=== PATIENT | female | born 1990 | race Asian ===

== ENCOUNTER → 2018-04-29 15:01 | Outpatient (CLI) | payer OTHER, SELFPAY ==
[2018-04-29 18:36] LABS: Chlamydia Trachomatis by PCR Negative (Negative); Neisserai gonorrhoeae by PCR Negative (Negative); Probe Check PASS; Sample Adequacy Control PASS; Specimen Processing Control PASS
[2018-05-03 13:38] LABS: HPV Reflexed? NOT INDICATED
== END ==
LOC: LABSPEC 15:03
PROVIDERS: Visit Provider Obstetrics & Gynecology
DX: Z32.01 Encounter for pregnancy test, result positive (principal); Z11.3 Encounter for screening for infections with a predominantly sexual mode of transmission; Z12.4 Encounter for screening for malignant neoplasm of cervix
CPT/HCPCS: 87491; 87591; 88175; G0145

== ENCOUNTER → 2018-05-22 13:14 | Outpatient (CLI) | payer OTHER, SELFPAY ==
[2018-05-22 15:39] LABS: Color, Urine Yellow (Yellow); Glucose, Dipstick Normal (Normal); Ketone-Dipstick Negative (Negative); Leukocyte Esterase-Dipstick 25 /ul (Negative); Nitrite-Dipstick Negative (Negative); Occult Blood-Urine Negative /ul (Negative); Protein-Dipstick Negative (Negative); Urine Bilirubin Dipstick Negative (Negative); Urine Clarity Clear (Clear); Urine Urobilinogen Normal (Normal)
[2018-05-22 15:50] LABS: Absolute Lymphocyte Count 1.94 X10^3/ul (0.83-4.51); Absolute Neutrophil Count 5.6 X10^3/uL (2.0-7.7); Basophil# 0.02 X10^3/uL; Basophil% 0.2 % (0-1); Eosinophil# 0.12 X10^3/uL; Eosinophils% 1.5 % (0-5); Hematocrit 38.6 % (37-47); Hemoglobin 13.4 g/dl (12.0-15.0); Lymphocyte # 1.94 X10^3/ul (4.0); Lymphocyte % 24.1 % (19-41); Mean Corp Hgb Conc 34.7 g/gl (32-36); Mean Corpuscular Hgb 30.7 pg (27.0-32.0); Mean Corpuscular Volume 88.3 fL (81-99); Mean Platelet Vol. 11.6 fl (6.2-12.0); Monocyte# 0.39 X10^3/uL; Monocyte% 4.8 % (0-10); Neutrophil # 5.58 X10^3/uL (2.7-7.7); Neutrophil % 69.3 % (47-70); Platelet Count 244 K/mm3 (150-450); RBC Distribution Width CV 12.4 % (11.6-14.6); RBC Distribution Width SD 39.3 fl (35.1-43.9); Red Blood Count 4.37 M/mm3 (4.2-5.4); White Blood Count 8.1 K/mm3 (4.4-11.0)
[2018-05-22 15:54] LABS: POSITIVE COUNT NO; POSITIVE DIFFERENTIAL NO; POSITIVE MORPHOLOGY NO
[2018-05-22 16:11] LABS: Thyroid Stim Hormone (TSH) 1.91 uIU/mL (0.358-3.74)
[2018-05-22 16:46] LABS: HIV - WCH Non-Reactive (Nonreactive); Rubella IgG 48.7 IU/mL
[2018-05-24 01:02] LABS: Prenatal RPR NONREACTIVE (NONREACTIVE)
[2018-05-24 11:18] LABS: HEPATITIS B SURFACE AG Negative (Negative); Hep C Antibodies 0.1 s/co ratio (0.0-0.9)
== END ==
LOC: WOBLAB 13:16
PROVIDERS: Visit Provider Obstetrics & Gynecology
DX: Z34.82 Encounter for supervision of other normal pregnancy, second trimester (principal)
CPT/HCPCS: 36415; 81002; 84443; 85025; 86703; 86762; 86803; 87340

== ENCOUNTER → 2018-09-04 09:02 | Outpatient (CLI) | payer OTHER, SELFPAY ==
[2018-09-04 10:53] LABS: Hematocrit 35.8 % (37-47); Hemoglobin 12.2 g/dl (12.0-15.0); Mean Corp Hgb Conc 34.1 g/gl (32-36); Mean Corpuscular Volume 88.2 fL (81-99); Mean Platelet Vol. 10.5 fl (6.2-12.0); Platelet Count 222 K/mm3 (150-450); RBC Distribution Width CV 12.9 % (11.6-14.6); RBC Distribution Width SD 41.4 fl (35.1-43.9); Red Blood Count 4.06 M/mm3 (4.2-5.4); White Blood Count 8.8 K/mm3 (4.4-11.0)
[2018-09-04 11:00] LABS: Scan Indicated on CBC? Y/N NO
[2018-09-04 11:04] LABS: Glucose Challenge Gest 1H 50g 148 mg/dL (70-140)
--- OUTSIDE RECORDS SUMMARY | 2018-10-30 14:53 | XMS RPT_ITS ---
:1990 Author Organization OHIP Support Name Relationship Address Phone SANDRAEARNEST Unavailable [address] + [place] [address] WOOBGYN Unavailable BENEKOS/WEEMAN/NUNO + [address] [facility] [address] [place] [address] EARNEST FLORES Unavailable [address] + [place] [address] WOOBGYN Unavailable BENEKOS/WEEMAN/NUNO + [address] [facility] [address] [place] [address] EARNEST FLORES Unavailable [address] + [place] [address] WOOBGYN Unavailable BENEKOS/WEEMAN/NUNO + [address] [facility] [address] [place] [address] EARNEST FLORES Unavailable [address] + [place] [address] WOOBGYN Unavailable BENEKOS/WEEMAN/NUNO + [address] [facility] [address] [place] [address] EARNEST FLORES Unavailable [address] + [place] [address] WOOBGYN Unavailable BENEKOS/WEEMAN/NUNO + [address] [facility] [address] [place] [address] EARNEST FLORES Unavailable [address] + [place] [address] WOOBGYN Unavailable BENEKOS/WEEMAN/NUNO + [address] [facility] [address] [place] [address] EARNEST FLORES Unavailable [address] + [place] [address] WOOBGYN Unavailable DAVID/ALFREDO/YAAKOV + [address] [place] [address] Care Team Providers Name Role Phone HernandezAshlyn, Summer Attending Unavailable Hernandez-Get, Summer Attending Unavailable Primay Care Physicia, No Primary Care Unavailable Noemi Mehta Attending Unavailable Hernandez-Get, Summer Attending Unavailable Hernandez-Get, Summer Attending Unavailable Primay Care Physicia, No Primary Care Unavailable Hernandez-Get, Summer Attending Unavailable Primay Care Physicia, No Primary Care Unavailable Hernandez-Get, Summer Attending Unavailable Hernandez-Get, Summer Referring Unavailable Cleo Parker Primary Care Unavailable PROBLEMS PROBLEMS DATE TYPE CONDITION / CODE ATTENDING STATUS SOURCE 09/20/2018 Unknown Z34.83 - Encounter Angélica Active [place] for supervision of [facility] , third Repository trimester / Z34.83(ICD-10) 05/22/2018 Unknown Z34.82 - Encounter Angélica Active [place] for supervision of [facility] , second Repository trimester / Z34.82(ICD-10) 04/29/2018 Unknown Z32.01 - Encounter Angélica Active [place] for test, [facility] result positive / Hospital Z32.01(ICD-10) Repository 04/29/2018 Unknown Z11.3 - Encounter Angélica Active [place] for screening for [facility] infections with a Hospital predominantly Repository sexual mode of transmission / Z11.3(ICD-10) 04/29/2018 Unknown Z12.4 - Encounter Angélica Active [place] for screening for [facility] malignant neoplasm Hospital of cervix / Repository Z12.4(ICD-10) 10/16/2017 Unknown R11.0 - Nausea / Angélica Active [place] R11.0(ICD-10) [facility] Hospital Repository 10/16/2017 Unknown N91.2 - Amenorrhea, Angélica Active [place] unspecified / [facility] N91.2(ICD-10) Hospital Repository PROCEDURES PROCEDURES No Procedure Records FoundRESULTS RESULTS VITAMIN D,25 HYDROXY Collected: 09/20/2018 Status: F Source: [place] [facility] TYPE CODE TESTS RESULT OUT OF REFERENCE UNITS RANGE LAB L506.1000 29.95-100.01 ng/mL Low Vitamin D 25.4 25-OH Result Comment: Vitamin D 25(OH) Status Range Deficiency <20 ng/mL (50nmol/L) Insuffciency 20 - 30 ng/mL (50 - 75 nmol/L) Sufficiency 30 - 100 ng/mL (75 - 250 nmol/L) Toxicity >100 ng/mL (>250 nmol/L) Performed By: #### L506.1000 #### [facility] [address] [place], [address] GESTATIONAL GTT 3HR Collected: 09/13/2018 Status: F Source: [place] 100G 7:10 AM [facility] REPOSITORY Order Comment: Is Patient Fasting? Y TYPE CODE TESTS RESULT OUT OF RANGE REFERENCE UNITS LAB L501.0650 <105 mg/dL Normal GLU 92 GTT-FASTING Result Comment: GLUCOSE TOLERANCE TEST FOR Reference Interval GESTATIONAL DIABETES Fasting <105 mg/dL 1 hour <190 mg/dl 2 hour <165 mg/dl 3 hour <145 mg/dl LAB L501.0660 <190 mg/dL Normal GLU GTT- 1HR 153 LAB L501.0670 <165 mg/dL Normal GLU GTT- 2HR 109 LAB L501.0680 <145 L Normal GLU GTT- 3HR 90 Performed By: #### L500.4710 #### [facility] [address] [facility] [place], [address] CBC-COMPLETE BLOOD CNT Collected: 09/04/2018 Status: F Source: [place] NO DIFF 9:30 AM [facility] REPOSITORY TYPE CODE TESTS RESULT OUT OF RANGE REFERENCE UNITS LAB L100.1000 4.4-11.0 K/mm3 Normal WBC 8.8 LAB L100.1200 4.2-5.4 M/mm3 Low RBC 4.06 LAB L100.1300 12.0-15.0 g/dl Normal HGB 12.2 LAB L100.1400 37-47 % Low HCT 35.8 LAB L100.1500 81-99 fL Normal MCV 88.2 LAB L100.1600 27.0-32.0 pg Normal MCH 30.0 LAB L100.1700 32-36 g/gl Normal MCHC 34.1 LAB L100.1810 11.6-14.6 % Normal RDW CV 12.9 LAB L100.1820 35.1-43.9 fl Normal RDW SD 41.4 LAB L100.1900 150-450 K/mm3 Normal PLT 222 LAB L100.2000 6.2-12.0 fl Normal MPV 10.5 Performed By: #### L100.0500 #### [facility] [address] [place], [address] GLUCOSE CHALLENGE GEST Collected: 09/04/2018 Status: F Source: [place] 1H 50G 9:30 AM [facility] REPOSITORY TYPE CODE TESTS RESULT OUT OF RANGE REFERENCE UNITS LAB L501.0250 70-140 mg/dL High GLU GEST 148 50g 1H Performed By: #### L501.0250 #### [facility] [address] [place], [place], [address] URINALYSIS, ROUTINE Collected: 05/22/2018 Status: F Source: [place] (DIPSTICK) 2:09 PM [facility] REPOSITORY Order Comment: How was Urine Obtained? Urine, Random TYPE CODE TESTS RESULT OUT OF RANGE REFERENCE UNITS LAB L400.3000 Yellow COLOR Normal Yellow LAB L400.3050 Clear Normal CLARITY Clear LAB L400.3200 Normal mg/dl Normal GLUCOSE, UR Normal LAB L400.3300 Negative mg/dL Normal BILIRUBIN URINE Negative LAB L400.3400 Negative mg/dl Normal KETONE UR Negative LAB L400.3465 1.002-1.030 Normal SP.GR. DIPSTX 1.010 LAB L400.3550 5.0 - 8.0 pH UR Normal 7.0 LAB L400.3600 Negative mg/dl PROT Normal DIPSTX Negative LAB L400.3700 Normal mg/dl Normal UROBILI Normal LAB L400.3750 Negative Normal NITRITE UR Negative LAB L400.3780 Negative /ul Normal OCCULT BLOOD-UR Negative LAB L400.3800 Negative /ul High LEUK 25 ESTERASE Performed By: #### L400.2010 #### [facility] [address] [place], [address] CBC W/DIFF, AUTOMATED Collected: 05/22/2018 Status: F Source: [place] 2:09 PM [facility] REPOSITORY TYPE CODE TESTS RESULT OUT OF RANGE REFERENCE UNITS LAB L100.1000 4.4-11.0 K/mm3 Normal WBC 8.1 LAB L100.1200 4.2-5.4 M/mm3 Normal RBC 4.37 LAB L100.1300 12.0-15.0 g/dl Normal HGB 13.4 LAB L100.1400 37-47 % Normal HCT 38.6 LAB L100.1500 81-99 fL Normal MCV 88.3 LAB L100.1600 27.0-32.0 pg Normal MCH 30.7 LAB L100.1700 32-36 g/gl Normal MCHC 34.7 LAB L100.1810 11.6-14.6 % Normal RDW CV 12.4 LAB L100.1820 35.1-43.9 fl Normal RDW SD 39.3 LAB L100.1900 150-450 K/mm3 Normal PLT 244 LAB L100.2000 6.2-12.0 fl Normal MPV 11.6 LAB L100.2100 47-70 % Normal NEUT% 69.3 LAB L100.2200 19-41 % Normal LY% 24.1 LAB L100.2300 0-10 % Normal MONO% 4.8 LAB L100.2400 0-5 % Normal EO% 1.5 LAB L100.2500 0-1 % Normal BASO% 0.2 LAB L100.2550 0.0-0.9 % Normal IM GRAN % 0.100 Result Comment: IG% - Immature Granulocytes (promyelocytes, myelocytes and metamyelocytes) > 1% indicates that a LEFT SHIFT is Present. LAB L100.2620 2.0-7.7 X10 3/uL Normal Absolute Neut 5.6 LAB L100.2720 0.83-4.51 X10 3/ul Normal Absolute Lymph 1.94 Performed By: #### L100.0100 #### [facility] [address] [place], [address] THYROID STIM HORMONE Collected: 05/22/2018 Status: F Source: [place] (TSH) 2:09 PM [facility] REPOSITORY TYPE CODE TESTS RESULT OUT OF RANGE REFERENCE UNITS LAB L501.9520 0.358-3.74 uIU/mL Normal TSH 1.91 Performed By: #### L501.9520 #### [facility] [address] [place], [address] T AND S-NO Collected: 05/22/2018 Status: F Source: [place] CHARGE W/PNP 2:09 PM [facility] REPOSITORY Order Comment: Reason for Type AND Screen/Red Cells: Surgery? N TYPE CODE TESTS RESULT OUT OF RANGE REFERENCE UNITS LAB B10.0800 A Normal BLOOD POSITIVE TYPE GEL LAB B100.4050 Normal Ab SCREEN NEGATIVE GEL Performed By: #### B100.7550 #### [facility] [address] [place], [address] RUBELLA IGG Collected: 05/22/2018 Status: F Source: [place] 2:09 PM [facility] REPOSITORY TYPE CODE TESTS RESULT OUT OF RANGE REFERENCE UNITS LAB L509.4000 IU/mL Normal Rubella IgG 48.7 Result Comment: Antibody results Interpretation of Immune Status < 5 IU/ml Presumed Non-immune 5 - < 10 IU/ml Equivocal > or = 10 IU/ml Presumed Immune Performed By: #### L509.4000, L3890.6005 #### [facility] [address] [place], [place], [address] HIV - WCH Collected: 05/22/2018 Status: F Source: [place] 2:09 PM [facility] REPOSITORY TYPE CODE TESTS RESULT OUT OF RANGE REFERENCE UNITS LAB L3890.6005 Nonreactive Normal HIV - [facility] Non-Reactive Performed By: #### L509.4000, L3890.6005 #### [facility] [address] [place], [address] RPR Collected: 05/22/2018 Status: F Source: [place] 2:09 PM [facility] REPOSITORY TYPE CODE TESTS RESULT OUT OF REFERENCE UNITS RANGE LAB L700.5100 NONREACTIVE Normal RPR NONREACTIVE Performed By: #### L700.5100 #### [facility] [address] [place], [address] HEPATITIS B SURFACE Collected: 05/22/2018 Status: F Source: [place] AG 2:09 PM [facility] REPOSITORY TYPE CODE TESTS RESULT OUT OF RANGE REFERENCE UNITS LAB L3100.0400 Negative Normal HB Negative SURF AG Result Comment: Performed at: [address] [id number] Military Analyst: Christiano Allen PhD, Phone: [phone] Performed By: #### L3100.0390, L3100.0625 #### [facility] (refer to report for specific site) refer to report for address and phone number HEPATITIS C ANTIBODIES Collected: 05/22/2018 Status: F Source: [place] 2:09 PM [facility] REPOSITORY TYPE CODE TESTS RESULT OUT OF RANGE REFERENCE UNITS LAB L3100.0650 0.0-0.9 s/co ratio Normal HEP C AB 0.1 Result Comment: Negative: < 0.8 Indeterminate: 0.8 - 0.9 Positive: > 0.9 The CDC recommends that a positive HCV antibody result be followed up with a HCV Nucleic Acid Amplification test (652239). Performed By: #### L3100.0390, L3100.0625 #### [facility] (refer to report for specific site) refer to report for address and phone number CT/NG WCH BY PCR Collected: 04/29/2018 Status: F Source: [place] 2:15 PM [facility] REPOSITORY TYPE CODE TESTS RESULT OUT OF RANGE REFERENCE UNITS LAB L8200.2100 Negative Normal Chlam Negative Trac PCR LAB L8200.2200 Negative Normal NG by Negative PCR Performed By: #### L8200.1999 #### [facility] [place], [address] PAP I-G W/RFX Collected: 04/29/2018 Status: F Source: [place] HRHPV-APTIMA 2:15 PM [facility] REPOSITORY Order Comment: CYTOLOGY INFORMATION: - CLINICAL INFORMATION: - DATE LMP/MENOPAUSE: 02/18/18 LMP - COLLECTION VIAL: Thin Prep Vial - HEALTHCARE RECEPTIONIST SOURCE: CERVICAL/ENDOCERVICAL - COLLECTION TECHNIQUE: BRUSH/SPATULA Specimen Comment: [id number] Specimen Comment: No. of containers..01 ThinPrep Vial TYPE CODE TESTS RESULT OUT OF RANGE REFERENCE UNITS LAB L7400.0800 . Normal DIAGN Comment Result Comment: NEGATIVE FOR INTRAEPITHELIAL LESION AND MALIGNANCY. LAB L7400.0900 . Normal ADEQ Comment Result Comment: Satisfactory for evaluation. Endocervical and/or squamous metaplastic cells (endocervical component) are present. LAB L7400.1400 . Normal PERFORM Comment Result Comment: Re Dominique, Kindergarten Instructional Assistant (ASCP) LAB L7400.2575 . Normal TEST METHOD Comment Result Comment: This liquid based ThinPrep(R) pap test was screened with the use of an image guided system. LAB L7400.2600 . Normal . COMM LAB L7400.2700 . Normal PAPSMR Comment Result Comment: The Pap smear is a screening test designed to aid in the detection of premalignant and malignant conditions of the uterine cervix. It is not a diagnostic procedure and should not be used as the sole means of detecting cervical cancer. Both false-positive and false-negative reports do occur. LAB L7400.2800 . Normal HPV RFLX Comment Result Comment: The HPV DNA reflex criteria were not met with this specimen result therefore, no HPV testing was performed. Performed at: - [facility] [id number] Military Analyst: Yisel Foster MD, Phone: [phone] Performed By: #### L7400.0353 #### [facility] (refer to report for specific site) refer to report for address and phone number HCG TITER QUANT., Collected: 10/12/2017 Status: F Source: [place] SERUM 2:20 PM [facility] REPOSITORY TYPE CODE TESTS RESULT OUT OF RANGE REFERENCE UNITS LAB L700.8000 <9 non-preg mIU/mL Normal HCG < 1 QUANT. Performed By: #### L700.8000 #### [facility] [address] [place], [address] ALLERGIES ALLERGIES DATE TYPE / CODE NAME / CODE REACTION SEVERITY SOURCE 02/20/2016 Drug No Known Unknown [facility] Allergy/4160 Allergies/F00 [facility] [address](SNOMED [id number](RXNOR Repository CT) M) ENCOUNTERS ENCOUNTERS ADMIT/DISCHARGE ACCOUNT ADMITTING ENCOUNTER LOCATION SOURCE NUMBER CLASS 09/20/2018 [id number] [address] [address] [facility] [address] [facility] Repository 09/13/2018 [id number] Ambulatory [place] 1 [facility] ing:LAB Repository 09/04/2018 [id number] Ambulatory [place] 4 [facility] ing:WOBLAB Repository 05/22/2018 [id number] Ambulatory [place] 6 [facility] ing:WOBLAB Repository 04/29/2018 [id number] Ambulatory [place] 5 [facility] ing:LABSPEC Repository 11/19/2017 [id number] Ambulatory BMSBuilding:B [place] 8 [facility] Repository 10/12/2017 [id number] Ambulatory [place] 5 [facility] ing:WOBLAB Repository PAYERS PAYERS ENCOUNTER GUARANTOR PAYER SUBSCRIBER SOURCE 09/20/2018 AGA SOTOMAYOR Primary E[place]ST [place] Insurance:NIKITA PERDOMO: [facility] Number: [id number] Hospital [id number]: [phone] [id number] Repository [phone] () Date:6731-45-43OC [address] [address], [place] [address]WA: 09/20/2018 Secondary NOT GIVENUNK [place] Insurance:SELF PAY [facility] Number: Effective Repository Date:2018-09-20 09/13/2018 AGA KLEIN6 Primary EAR[place]ST [place] Insurance:NIKITA PERDOMO: [facility] Number: [id number] Hospital [address]Ckg: [phone] [id number] Repository [phone] () Date:1111-07-73VC [address] [address], [place] [address]SF: 09/13/2018 Secondary NOT GIVENUNK [place] Insurance:SELF PAY [facility] Number: Effective Repository Date:2018-09-04 09/04/2018 AGA SOTOMAYOR S Primary EARNEST [place] Insurance:NIKITA PERDOMO: [place] HEALTHPolicy Number: [id number] Hospital [address]Vpe: [phone] [id number] Repository [phone] (HP) Date:5753-11-29YG [address] [address]VL[place], [place] [address]WM: 09/04/2018 Secondary NOT GIVENUNK [place] Insurance:SELF PAY [facility] Hospital Number: Effective Repository Date:2018-09-04 05/22/2018 AGA SOTOMAYOR S Primary EARNEST GR[place]ES [place] Insurance:[place] HEALTHPolicy Number: [facility] [address]Mxi: 419 [id number] Repository [phone] () Date:7463-85-26QX [address] [address] [address]LR: 05/22/2018 Secondary NOT GIVENUNK [place] Insurance:SELF PAY [facility] Hospital Number: Effective Repository Date:2018-05-22 04/29/2018 AGA SOTOMAYOR S Primary EARNEST GRIMES [place] [facility] [address]Lrb: 419 [id number] Repository [phone] () Date:6228-56-10WJ [address] [address] [address]CT: 04/29/2018 Secondary NOT GIVENUNK [place] Insurance:SELF PAY [facility] Hospital Number: Effective Repository Date:2018-04-29 11/19/2017 AGA SOTOMAYOR S Primary EARNEST GRIMES [place] Insurance:[place] Number: Hospital [address]Mda: 419 [id number] Repository [phone] () Date:6814-07-53YA [address], [place] [address]QL: 11/19/2017 Secondary NOT GIVENUNK [place] Insurance:SELF PAY [facility] Number: Effective Repository Date:2017-11-19 10/12/2017 AGA KLEIN6 S Primary EARNEST [place] [facility] Insurance[facility] [place] Number: [facility] [address]Zyz: [phone] [id number] Repository [phone] () Date:1809-39-35SC [address] [address], [place] [address]VO: 10/12/2017 Secondary ANN HERNÁNDEZ [place] Insurance:SELF PAY [facility] Number: Effective Repository Date:2017-10-12
== END ==
PROVIDERS: Visit Provider Obstetrics & Gynecology
DX: Z34.83 Encounter for supervision of other normal pregnancy, third trimester (principal)
CPT/HCPCS: 36415; 82950; 85027

== ENCOUNTER → 2018-09-13 06:59 | Outpatient (CLI) | payer OTHER, SELFPAY ==
[2018-09-13 07:48] LABS: Glucose GTT-Gestation. Fasting 92 mg/dL (<105)
[2018-09-13 09:32] LABS: Glucose GTT-Gestational 1 Hr 153 mg/dL (<190)
[2018-09-13 11:06] LABS: Glucose GTT-Gestational 2 Hr 109 mg/dL (<165)
[2018-09-13 11:07] LABS: Glucose GTT-Gestational 3 Hr 90 L (<145)
== END ==
LOC: LAB 07:02
PROVIDERS: Referring Provider Obstetrics & Gynecology; Visit Provider Obstetrics & Gynecology
DX: O99.810 Abnormal glucose complicating pregnancy (principal); Z3A.00 Weeks of gestation of pregnancy not specified
CPT/HCPCS: 36415; 82951; 82952

== ENCOUNTER → 2018-09-20 14:48 | Outpatient (CLI) | payer OTHER, SELFPAY ==
[2018-09-20 16:07] LABS: Vitamin D,25 Hydroxy 25.4 ng/mL (29.95-100.01)
--- OUTSIDE RECORDS SUMMARY | 2018-12-25 06:09 | XMS RPT_ITS ---
:1990 Author Organization OHIP Support Name Relationship Address Phone SANDRAEARNEST Unavailable [address] + [place] [address] WOOBGYN Unavailable BENEKOS/WEEMAN/NUNO + [address] [facility] [address] [place] [address] EARNEST FLORES Unavailable [address] + [place] [address] WOOBGYN Unavailable BENEKOS/WEEMAN/NUNO + [address] [facility] [address] [place] [address] EARNEST FLORES Unavailable [address] + [place] [address] WOOBGYN Unavailable BENEKOS/WEEMAN/NUNO + [address] [facility] [address] [place] [address] EARNEST FLORES Unavailable [address] + [place] [address] WOOBGYN Unavailable BENEKOS/WEEMAN/NUNO + [address] [facility] [address] [place] [address] EARNEST FLORES Unavailable [address] + [place] [address] WOOBGYN Unavailable BENEKOS/WEEMAN/NNUO + [address] [facility] [address] [place] [address] EARNEST FLORES Unavailable [address] + [place] [address] WOOBGYN Unavailable BENEKOS/WEEMAN/NUNO + [address] [facility] [address] [place] [address] Care Team Providers Name Role Phone Tereza Lindsay Attending Unavailable Noemi Mehta Attending Unavailable Angélica, Summer Attending Unavailable Mary-Get, Summer Attending Unavailable Primay Care Physicia, No Primary Care Unavailable Mary-Get, Summer Attending Unavailable Primay Care Physicia, No Primary Care Unavailable Hernandez-Get, Summer Attending Unavailable Angélica, Summer Referring Unavailable Cleo Parker Primary Care Unavailable PROBLEMS PROBLEMS DATE TYPE CONDITION / CODE ATTENDING STATUS SOURCE 09/20/2018 Unknown Z34.83 - Encounter Angélica Active [place] for supervision of [facility] other normal Hospital , third Repository trimester / Z34.83(ICD-10) 05/22/2018 Unknown Z34.82 - Encounter Angélica Active [place] for supervision of [facility] other normal Hospital , second Repository trimester / Z34.82(ICD-10) 04/29/2018 Unknown Z32.01 - Encounter Angélica Active [place] for test, [facility] result positive / Hospital Z32.01(ICD-10) Repository 04/29/2018 Unknown Z11.3 - Encounter Angélica Active [place] for screening for [facility] infections with a Hospital predominantly Repository sexual mode of transmission / Z11.3(ICD-10) 04/29/2018 Unknown Z12.4 - Encounter Angélica Active [place] for screening for [facility] malignant neoplasm Hospital of cervix / Repository Z12.4(ICD-10) PROCEDURES PROCEDURES No Procedure Records FoundRESULTS RESULTS VITAMIN D,25 HYDROXY Collected: 09/20/2018 Status: F Source: TR[place] 2:30 PM [facility] REPOSITORY TYPE CODE TESTS RESULT OUT OF REFERENCE UNITS RANGE LAB L506.1000 29.95-100.01 ng/mL Low Vitamin D 25.4 25-OH Result Comment: Vitamin D 25(OH) Status Range Deficiency <20 ng/mL (50nmol/L) Insuffciency 20 - 30 ng/mL (50 - 75 nmol/L) Sufficiency 30 - 100 ng/mL (75 - 250 nmol/L) Toxicity >100 ng/mL (>250 nmol/L) Performed By: #### L506.1000 #### [facility] [address] GESTATIONAL GTT 3HR Collected: 09/13/2018 Status: F Source: TRISH 100G 7:10 AM [facility] REPOSITORY Order Comment: Is Patient Fasting? Y [...] 3HR 90 Performed By: #### L500.4710 #### [facility] [address] [facility] [place], [place], [id number] CBC-COMPLETE BLOOD CNT Collected: 09/04/2018 Status: F Source: TR[place] NO DIFF 9:30 AM [facility] REPOSITORY TYPE CODE TESTS RESULT OUT OF [...] MPV 10.5 Performed By: #### L100.0500 #### [facility] [address] [place], [place], [id number] GLUCOSE CHALLENGE GEST Collected: 09/04/2018 Status: F Source: TRISH 1H 50G 9:30 AM [facility] REPOSITORY TYPE CODE TESTS RESULT OUT OF RANGE REFERENCE UNITS LAB L501.0250 70-140 mg/dL High GLU GEST 148 50g 1H Performed By: #### L501.0250 #### [facility] [address] [facility] [place], [address] URINALYSIS, ROUTINE Collected: 05/22/2018 Status: F Source: TRISH (DIPSTICK) 2:09 PM [facility] REPOSITORY Order Comment: How was Urine Obtained? [...] 25 ESTERASE Performed By: #### L400.2010 #### [facility] [address] [place], [address] CBC W/DIFF, AUTOMATED Collected: 05/22/2018 Status: F Source: [place] 2:09 PM [facility] REPOSITORY TYPE CODE TESTS RESULT OUT OF [...] Lymph 1.94 Performed By: #### L100.0100 #### [facility] [address] [place], [place], [address] THYROID STIM HORMONE Collected: 05/22/2018 Status: F Source: [place] (TSH) 2:09 PM [facility] REPOSITORY TYPE CODE TESTS RESULT OUT OF RANGE REFERENCE UNITS LAB L501.9520 0.358-3.74 uIU/mL Normal TSH 1.91 Performed By: #### L501.9520 #### [facility] [address] [place], [address] T AND S-NO Collected: 05/22/2018 Status: F Source: TRISH CHARGE W/PNP 2:09 PM [facility] REPOSITORY Order Comment: Reason for Type AND Screen/Red Cells: Surgery? N TYPE CODE TESTS RESULT OUT OF RANGE REFERENCE UNITS LAB B10.0800 A Normal BLOOD POSITIVE TYPE GEL LAB B100.4050 Normal Ab SCREEN NEGATIVE GEL Performed By: #### B100.7550 #### [facility] [address] [place], [address] RUBELLA IGG Collected: 05/22/2018 Status: F Source: TRISH 2:09 PM [facility] REPOSITORY TYPE CODE TESTS RESULT OUT OF RANGE REFERENCE UNITS LAB L509.4000 IU/mL Normal Rubella IgG 48.7 Result Comment: Antibody results Interpretation of Immune Status < 5 IU/ml Presumed Non-immune 5 - < 10 IU/ml Equivocal > or = 10 IU/ml Presumed Immune Performed By: #### L509.4000, L3890.6005 #### [facility] [address] [place], [place], [address] HIV - WCH Collected: 05/22/2018 Status: F Source: TRISH 2:09 PM [facility] REPOSITORY TYPE CODE TESTS RESULT OUT OF RANGE REFERENCE UNITS LAB L3890.6005 Nonreactive Normal HIV - [facility] Non-Reactive Performed By: #### L509.4000, L3890.6005 #### [facility] [address] [place], [address] RPR Collected: 05/22/2018 Status: F Source: [place] 2:09 PM [facility] REPOSITORY TYPE CODE TESTS RESULT OUT OF REFERENCE UNITS RANGE LAB L700.5100 NONREACTIVE Normal RPR NONREACTIVE Performed By: #### L700.5100 #### [facility] [address] [place], [place], [address] HEPATITIS B SURFACE Collected: 05/22/2018 Status: F Source: TR[place] AG 2:09 PM [facility] REPOSITORY TYPE CODE TESTS RESULT OUT OF RANGE REFERENCE UNITS LAB L3100.0400 Negative Normal HB Negative SURF AG Result Comment: Performed at: - [facility] [address] [id number] Search Optimization Analyst: Christiano Allen PhD, Phone: [phone] Performed By: #### L3100.0390, L3100.0625 #### [facility] (refer to report for specific site) refer to report for address and phone number HEPATITIS C ANTIBODIES Collected: 05/22/2018 Status: F Source: TRISH 2:09 PM [facility] REPOSITORY TYPE CODE TESTS RESULT OUT OF RANGE REFERENCE UNITS LAB L3100.0650 0.0-0.9 s/co ratio Normal HEP C AB 0.1 Result Comment: Negative: < 0.8 Indeterminate: 0.8 - 0.9 Positive: > 0.9 The CDC recommends that a positive HCV antibody result be followed up with a HCV Nucleic Acid Amplification test ([id number]). Performed By: #### L3100.0390, L3100.0625 #### [facility] (refer to report for specific site) refer to report for address and phone number CT/NG WCH BY PCR Collected: 04/29/2018 Status: F Source: [place] 2:15 PM [facility] REPOSITORY TYPE CODE TESTS RESULT OUT OF RANGE REFERENCE UNITS LAB L8200.2100 Negative Normal Chlam Negative Trac PCR LAB L8200.2200 Negative Normal NG by Negative PCR Performed By: #### L8200.1999 #### [facility] [place], [address] PAP I-G W/RFX Collected: 04/29/2018 Status: F Source: [place] HRHPV-APTIMA 2:15 PM [facility] REPOSITORY Order Comment: CYTOLOGY INFORMATION: - CLINICAL INFORMATION: - DATE LMP/MENOPAUSE: 02/18/18 LMP - COLLECTION VIAL: Thin Prep Vial - PIPEFITTER SOURCE: CERVICAL/ENDOCERVICAL - COLLECTION TECHNIQUE: BRUSH/SPATULA Specimen Comment: [id number] Specimen Comment: No. of containers..01 ThinPrep Vial TYPE CODE TESTS RESULT OUT OF RANGE REFERENCE UNITS LAB L7400.0800 . Normal DIAGN Comment Result Comment: NEGATIVE FOR INTRAEPITHELIAL LESION AND MALIGNANCY. LAB L7400.0900 . Normal ADEQ Comment Result Comment: Satisfactory for evaluation. Endocervical and/or squamous metaplastic cells (endocervical component) are present. LAB L7400.1400 . Normal PERFORM Comment Result Comment: Re Dominique, Music Mixer (ASCP) LAB L7400.2575 . Normal TEST METHOD [...] no HPV testing was performed. Performed at: [facility] [id number] Search Optimization Analyst: Yisel Foster MD, Phone: [phone] Performed By: #### L7400.0353 #### [facility] (refer to report for specific site) refer to report for address and phone number ALLERGIES ALLERGIES DATE TYPE / CODE NAME / CODE REACTION SEVERITY SOURCE 02/20/2016 Drug No Known Unknown [facility] Allergy/4160 Allergies/F00 Hospital 37814(SNOMED [id number](RXNOR Repository CT) M) ENCOUNTERS ENCOUNTERS ADMIT/DISCHARGE ACCOUNT ADMITTING ENCOUNTER LOCATION SOURCE NUMBER CLASS 09/20/2018 [id number] [facility] ing:LAB[facility] Repository 09/13/2018 [id number] Ambulatory [facility] 1 [facility] ing:LAB Repository 09/04/2018 [id number] Ambulatory [place] Trish 4 [facility] ing:WOBLAB Repository 05/22/2018 [id number] Ambulatory [place] Trish 6 [facility] ing:WOBLAB Repository 04/29/2018 [id number] Ambulatory [place] Trish 5 [facility] ing:LABSPEC Repository 11/19/2017 [id number] Ambulatory BMSBuilding:B [place] 8 [facility] Repository PAYERS PAYERS ENCOUNTER GUARANTOR PAYER SUBSCRIBER SOURCE 09/20/2018 AGA KLEIN6 Primary EARNEST Trish [facility] Insurance:NIKITA PERDOMO: [facility] [place] Number: [id number] Hospital [address]Szy: [phone] [id number] Repository [phone] () Date:[id number] [address] [address], [place] [address]PA: 09/20/2018 Secondary NOT GIVENUNK [place] Insurance:SELF PAY [facility] Hospital Number: Effective Repository Date:2018-09-20 09/13/2018 AGA SOTOMAYOR Primary EARNESTLauren Chambers [place] [facility]: [id number] Hospital [address]Jln: ([phone] [id number] Repository [phone] () Date:6451-66-16JK [address] [address], [place] [address]QQ: 09/13/2018 Secondary NOT GIVENUNK [place] Insurance:SELF PAY [facility] Hospital Number: Effective Repository Date:2018-09-04 09/04/2018 AGA SOTOMAYOR S Primary EARNEST Trish [place] Insurance:[facility] SAN[facility]AB[facility]: [id number] Hospital [address]Gkq: [phone] [id number] Repository [phone] () Date:9489-01-91QO [address] [address]FSE[place], [place] [address]XB: 09/04/2018 Secondary NOT GIVENUNK [place] Insurance:SELF PAY [facility] Hospital Number: Effective Repository Date:2018-09-04 05/22/2018 AGA SOTOMAYOR S Primary EARNESTLauren GRIMES Trish [place] [facility]: [facility] [id number]: [phone] [id number] Repository [phone] () Date:2166-27-11TS [address] [address] [address]ZP: 05/22/2018 Secondary NOT GIVENUNK [place] Insurance:SELF PAY [facility] Number: Effective Repository Date:2018-05-22 04/29/2018 AGA SOTOMAYOR S Primary EARNESTLauren GRIMES Trish [place] Insurance:[facility] Number: [facility] [id number]: [phone] [id number] Repository [phone] () Date:7860-36-98TO [address] [address]BLGEPPJE, [place] [address]NU: 04/29/2018 Secondary NOT GIVENUNK Trish Insurance:SELF PAY [facility] Hospital Number: Effective Repository Date:2018-04-29 11/19/2017 AGA FLORES[address] [facility] [place] Number: [facility] [id number]: [id number] [id number] Repository [phone] () Date:6528-89-66HU [address]JBND[place], [place] [address]EY: 11/19/2017 Secondary NOT GIVENUNK [place] Insurance:SELF PAY [facility] Hospital Number: Effective Repository Date:2017-11-19
== END ==
LOC: LABSPEC 14:49
PROVIDERS: Visit Provider Obstetrics & Gynecology
DX: Z34.83 Encounter for supervision of other normal pregnancy, third trimester (principal)
CPT/HCPCS: 36415; 82306

== ENCOUNTER 2018-11-19 12:00 | Inpatient (IN) | payer OTHER, SELFPAY ==
--- NOTE | 2018-11-19 13:30 | PCM.HP.OB ---
- Problem List (1) 39 weeks gestation of Status: Acute History Date of Admission: 11/19/18 Final ED: 11/25/18 Final ED Source: US <20 weeks Gestational age: 39 Weeks and 1 Days History of this : This is a 27 year-old, G [3], P [2002], at 39 1/7 weeks gestation presenting for elective induction of labor. Reports good movement, no contractions, leaking of fluid or vaginal bleeding. No complaints. Medical History: Medical History (Last Updated 11/13/17 @ 10:22 by [place] Buchanan) Palpitations (Chronic) R00.2 Syncope and collapse (Chronic) R55 Murmur (Chronic) R01.1 Surgical History: Surgical History (Last Updated 11/19/18 @ 18:09 by Tereza Lindsay MD) No pertinent past surgical history Z78.9 Allergies No Known Allergies Allergy (Verified 11/19/18 15:33) Home Medications: Home Medications Vits [Prenatabs FA ] 1 tab PO DAILY 02/20/16 Fluoxetine HCl [Prozac] 40 mg PO DAILY 11/19/18 Vitamin D3 4,000 mcg PO DAILY 11/19/18 Smoking Status: Never smoker Alcohol: None Number of Fetus(es): 1 Heart Tracin, moderate variability, + accelerations, no decelerations TOCO Analysis: 0/10 min History Past Pregnancies: Past Pregnancies Delivery Date Name GA/Weeks Outcome Route Weight Gender Labor Length Anesthesia Delivery Location Provider FOB Labs: Mom's Problem List Problem Status Onset Code 39 weeks gestation of Acute Z3A.39 Mom's Labs & Results 11/19/18 11/19/18 14:00 14:00 WBC 12.0 H RBC 4.12 L Hgb 12.1 Hct 35.9 L MCV 87.1 MCH 29.4 MCHC 33.7 RDW 13.3 RDW Differential 42.1 Plt Count 199 MPV 11.0 Blood Type A POSITIVE Antibody Screen NEGATIVE Course Did the patient receive Yes care? Labs Blood Type: A RH: POSITIVE RPR/VDRL/Syphilis Nonreactive Rubella status Immune HbSAg Negative Date Done: 05/22/18 Chlamydia Negative Gonorrhea Negative HIV/AIDS Non-Reactive Group B Strep: Negative Current Obstetrical History Gestational Diabetes No Incompetent Cervix No Infertility No IUGR No Macrosomia No Hypertension/Pre-eclampsia No Placenta Previa/Abruption No PTL/PROM No Uterine anomaly No Oligohydramnios No Polyhydramnios No Multiple gestation No Past Medical History Asthma No Diabetes No Hypertension No Heart disease No Mitral valve prolapse No Neurologic/Seizure disorder/ Yes Migraines Kidney disease No Liver disease No Varicosities No Clotting disorders/Hx of DVT No Thyroid Dysfunction No Other medical diseases No Psychiatric disorders Yes: ANXIETY, SAD Major trauma No Abnormal PAP smear No Sleep apnea No Mammogram in the last 2 years No Medications Taken During Dose/Freq.: [zithromax] 250mg Last Date/Time of Medication 09/2018 Taken: [zithromax] Reason for taking medication [ migraines fiorecet] Social History Marital Status: Alleged father CE Hx Smoking No Smoking Status Never smoker Expected Infant Delivery Method: Spontaneous Vaginal Number of Visits: 11 Physical Exam Vitals: AVSS General: Alert, Oriented x3, Cooperative, No apparent distress HEENT: Atraumatic, Normocephalic Cardiovascular: Regular Rhythm Lungs: Normal air movement Abdomen: Soft, Non Tender, Non-Distended Neurological: Neuro grossly intact SENIOR FRONT END ENGINEER: Normal external genitalia Estimated gestational size: Appropriate for gestational size Presentation: Cephalic Cervix Dilation (cm): 4 - soft, midposition Station: -3 Effacement (%): 50 Assessment/Plan All Active Problems (Last Updated 11/13/17 @ 10:22 by [place] Buchanan) 39 weeks gestation of (Acute) This is a 27 year-old, G [3], P [2002], at 39 1/7wga weeks gestational age. -Admission consents signed -Cervix favorable, Will start pitocin as planned -LARC declined -Maternal and statuses reassuring
[2018-11-19] MEDS: Lactated Ringers 1,000 ML 50 ML IV ×3 (14:10→20:43)
[2018-11-19 14:21] LABS: Hematocrit 35.9 % (37-47); Hemoglobin 12.1 g/dl (12.0-15.0); Mean Corp Hgb Conc 33.7 g/gl (32-36); Mean Corpuscular Hgb 29.4 pg (27.0-32.0); Mean Corpuscular Volume 87.1 fL (81-99); Platelet Count 199 K/mm3 (150-450); RBC Distribution Width CV 13.3 % (11.6-14.6); RBC Distribution Width SD 42.1 fl (35.1-43.9); Red Blood Count 4.12 M/mm3 (4.2-5.4)
[2018-11-19 14:23] LABS: Scan Indicated on CBC? Y/N NO
[2018-11-19] MEDS: Oxytocin 30 units/NS 500 ml 30 UNITS/500 ML IV.SOLN IV (15:20)
[2018-11-19 15:32] VITALS: BMI 37.2
--- NOTE | 2018-11-19 17:58 | PCM.PN.BLA ---
Progress Note LABOR PROGRESS NOTE Reports mild contractions with pitocin. AVSS GEN - NAD, AAO x 3 FHR 140, moderate variability, + accelerations, no decelerations TOCO 2/10 min SVE 5/60/-3, moderate and midposition A/P: 27yo @ 39 1/7wga, IOL, Cat I FHr -Continue pitocin as tolerated by mother and fetus -Amniotomy performed with clear fluid and head settling to -2 station. -Maternal and statuses reassuring
[2018-11-19] MEDS: fentaNYL-bupivacaine (epidural) 100 ML BAG EPIDURAL (19:50)
[2018-11-19] MEDS: Ondansetron 4 MG/2 ML Vial IV (21:21)
[2018-11-19] MEDS: 0.9% Saline Lock 10 ML Syringe IV ×2 (21:21→23:42)
--- NOTE | 2018-11-19 21:50 | PCM.OB.VAG ---
- Problem List (1) 39 weeks gestation of Status: Acute (2) (spontaneous vaginal delivery) Status: Acute Vaginal Delivery Maternal Presentation: Elective Induction Method of Induction: Pitocin, Amniotomy Amniotic Membrane Rupture Type: Artificial Rupture of Membrane time: 11/19/18 1749h Amniotic Fluid Description: Clear Final ED: 11/25/18 Final ED Source: US <20 weeks Gestational age: 39 Weeks and 1 Days Date of Procedure: 11/19/18 Pre-Operative Diagnosis: 39 1/7wga Post-Operative Diagnosis: 39 1/7wga Surgery/ Procedure Performed: Spontaneous Vaginal Delivery Anesthesiologist: Jessica Basurto Type of Anesthesia: Epidural Description of Procedure: Patient was FD/+2 station. FHR Cat II with moderate variability. She pushed to deliver a male infant in TONY. The was placed on the maternal abdomen and further attended by nursery personnel. The cord was doubly clamped and cut at approximately 3 minutes of life. The placenta delivered spontaneously and appeared intact. A second degree perineal laceration was repaired with 3-0 Vicryl Rapide. Sponge, needle counts were correct x 2. Presentation: Vertex Placental Delivery Description: Spontaneous Placenta Disposition: [facility] Cord Vessel Description: 3 Vessels Nuchal Cord Compression: Without compression Cord Entanglement: None Drain: Pandya to straight drain Estimated Blood Loss: 350 ml A gender: Male (1 minute): 8 (5 minute): 9 Episiotomy Description: None Laceration: None Medications given after delivery: IV Pitocin Complications: None
--- NOTE | 2018-11-19 22:26 | DCINST_ITS ---
Discharge Diet: No Restrictions Discharge Activity: Return to Normal Activity, May not drive while taking narcotic pain medications., May Shower, May Take a Tub Bath May resume sexual activity in: 6 weeks Lifting Restrictions: 20-25lb Call your doctor if you observe: Fever of 101 or Higher, Inability to urinate, Inability to have a bowel movement, Using more than one pad per hour, Shortness of breath, Chest pain, Calf discomfort, Uncontrolled pain Cleanse incision/area with: Soap & Water Additional Instructions: If you experience any of the following, contact your healthcare provider. * Bleeding that soaks a pad every hour for 2 hours * Fever 100.4 or higher * Unrelieved incision or abdominal pain * Swelling, redness, discharge or bleeding from your incision or episiotomy site * Your incision begins to separate * Problems urinating (including inability to urinate or burning while urinating). * Visual changes * Severe headache * Flu-like symptoms * Pain or redness in one of both of your breasts * Pain, warmth, tenderness or swelling in your legs, especially the calf area * Frequent nausea and vomiting * Symptoms of depression or anxiety If you experience any of the following, call 911 or go to the nearest Emergency Room. * Chest pain * Problems breathing * Seizure activity * Partial or complete paralysis of a body part, slurred speech, weakness or drooping of the face, or a sudden inability to walk or hold your balance Allergies/Adverse Reactions: Allergies No Known Allergies Allergy (Verified 11/19/18 15:33) Medications to take at Discharge Vits [Prenatabs FA ] 1 tab PO DAILY 02/20/16 Docusate Sodium [Colace] 100 mg PO BID PRN PRN #60 capsule 11/19/18 Fluoxetine HCl [Prozac] 40 mg PO DAILY 11/19/18 Ibuprofen 600 mg PO TID #30 tablet 11/19/18 Vitamin D3 4,000 mcg PO DAILY 11/19/18 The following prescriptions were given: Docusate Sodium [Colace] 100 mg PO BID PRN PRN #60 capsule PRN Reason: Constipation Ibuprofen 600 mg PO TID #30 tablet Please Follow Up With: Tereza Lindsay MD When: 2 and 6 weeks Primary Care Physician: Cleo Parker DO [Primary Care Provider] - Test Results: Test results from this visit will be discussed in further detail at your follow- up appointment, if applicable.
[2018-11-20 00:35] VITALS: BP 95/50; PULSE 77; RESP 14; TEMP 36.4
[2018-11-20] MEDS: Acetaminophen 325 MG Tablet PO (03:56)
[2018-11-20 03:57] VITALS: BP 106/62; PULSE 74; RESP 20; TEMP 36.4
[2018-11-20 09:43] VITALS: BP 97/60; PULSE 72; RESP 16; TEMP 36.3; O2SAT 99
[2018-11-20] MEDS: FLUoxetine 20 MG Capsule 40 MG PO (09:44)
[2018-11-20] MEDS: Prenatal Vits Tablet 1 TABLET PO (09:44)
--- NOTE | 2018-11-20 09:48 | PCM.PN.OB ---
Patient Problems: Active and Suspected Problems (Last Updated 11/13/17 @ 10:22 by Florida Buchanan) 39 weeks gestation of (Acute) (spontaneous vaginal delivery) (Acute) Subjective: Reports tiredness this morning, limited sleep. She is sore at perineum, but pain is manageable. OOb, no issues voiding. Objective: avss - Physical Exam General: Alert, Oriented x3, Cooperative, No apparent distress HEENT: Atraumatic, Normocephalic Lungs: Clear to auscultation, Normal air movement Cardiovascular: Regular rate, Regular Rhythm, Normal S1, Normal S2 Abdomen: Soft, Non Tender, Non-Distended, - - Fundus firm and nontender Extremities: No edema, No Calf Tenderness Neurological: Neuro grossly intact Psych/Mental Status: Normal Affect, Appropriate, Alert and oriented to time, place, person, mood and affect Vital Signs Temp Pulse Resp BP Pulse Ox 97.4 F L 72 16 97/60 99 11/20/18 09:43 11/20/18 09:43 11/20/18 09:43 11/20/18 09:43 11/20/18 09:43 Oxygen Delivery Method Room Air Weight: 92.3 kg Body Mass Index (BMI) 37.2 Intake and Output for Last 24 Hours 11/18/18 11/19/18 11/20/18 23:59 23:59 23:59 Output Total 700 / 700 Balance -700 / -700 Laboratory Tests Past 24 Hrs 11/19/18 11/19/18 14:00 14:00 WBC 12.0 H RBC 4.12 L Hgb 12.1 Hct 35.9 L MCV 87.1 MCH 29.4 MCHC 33.7 RDW 13.3 RDW Differential 42.1 Plt Count 199 MPV 11.0 Blood Type A POSITIVE Antibody Screen NEGATIVE Medical Necessity - Tobacco Use Smoking Status: Never smoker Assessment/Plan All Active Problems (Last Updated 11/13/17 @ 10:22 by Florida Buchanan) 39 weeks gestation of (Acute) (spontaneous vaginal delivery) (Acute) This is a 27 year-old, G [3], P [3003] PPD#1 s/p doing well -Routine care
[2018-11-20] MEDS: Ibuprofen 600 MG Tablet PO ×2 (11:51→17:58)
[2018-11-20 13:15] VITALS: BP 98/67; PULSE 99; RESP 16; TEMP 36.1; O2SAT 99
[2018-11-20 16:17] VITALS: BP 97/51; PULSE 72; RESP 16; TEMP 36.1; O2SAT 99
[2018-11-20 20:25] VITALS: BP 103/55; PULSE 78; RESP 16; TEMP 35.9
[2018-11-21 01:43] VITALS: BP 99/57; PULSE 68; RESP 17; TEMP 35.4
[2018-11-21 08:00] VITALS: BP 95/72; PULSE 70; RESP 16; TEMP 36.4
--- NOTE | 2018-11-21 09:33 | PCM.PN.OB ---
Patient Problems: Active and Suspected Problems (Last Updated 11/13/17 @ 10:22 by Florida Buchanan) 39 weeks gestation of (Acute) (spontaneous vaginal delivery) (Acute) Subjective: No issues overnight. Slept more yesterday. continues nursing well. No complaints. Objective: avss - Physical Exam General: Alert, Oriented x3, Cooperative, No apparent distress HEENT: Atraumatic, Normocephalic Lungs: Clear to auscultation, Normal air movement Cardiovascular: Regular rate, Regular Rhythm, Normal S1, Normal S2 Abdomen: Soft, Non Tender, Non-Distended, - - Fundus firm and nontender Extremities: No edema, No Calf Tenderness Neurological: Neuro grossly intact Psych/Mental Status: Normal Affect, Appropriate, Alert and oriented to time, place, person, mood and affect Vital Signs Temp Pulse Resp BP Pulse Ox 97.6 F L 70 16 95/72 99 11/21/18 08:00 11/21/18 08:00 11/21/18 08:00 11/21/18 08:00 11/20/18 16:17 Oxygen Delivery Method Room Air Weight: 92.3 kg Body Mass Index (BMI) 37.2 Intake and Output for Last 24 Hours 11/19/18 11/20/18 11/21/18 23:59 23:59 23:59 Output Total 700 / 700 Balance -700 / -700 Medical Necessity - Tobacco Use Smoking Status: Never smoker Assessment/Plan All Active Problems (Last Updated 11/13/17 @ 10:22 by Florida Buchanan) 39 weeks gestation of (Acute) (spontaneous vaginal delivery) (Acute) This is a 27 year-old, G [3], P [3003] PPD#2 s/p doing well -Routine care -d/c home today
[2018-11-21] MEDS: Senna/Docusate Sodium 1 Tablet PO (09:49)
[2018-11-21] MEDS: Prenatal Vits Tablet 1 TABLET PO (09:50)
[2018-11-21 13:00] VITALS: BP 102/63; PULSE 79; RESP 16; TEMP 36.6
== END 2018-11-21 13:44 | disposition home or self-care (01) | DRG 807 ==
PROVIDERS: Admitting Provider Obstetrics & Gynecology; Referring Provider Obstetrics & Gynecology; Visit Provider Obstetrics & Gynecology
DX: O69.81X0 Labor and delivery complicated by cord around neck, without compression, not applicable or unspecified (principal); O70.1 Second degree perineal laceration during delivery; Z79.899 Other long term (current) drug therapy; Z3A.39 39 weeks gestation of pregnancy; Z37.0 Single live birth
CPT/HCPCS: 59025; 59050; 85027; 86850; 86900; 99218; J7120; A4216; G0378; J2405

== ENCOUNTER → 2019-09-03 11:38 | Outpatient (CLI) | payer OTHER, SELFPAY ==
--- NOTE | 2019-09-03 11:43 | RAD_ITS ---
STUDY: X-RAY - RIGHT HUMERUS REASON FOR EXAM: Female, 28 years old. TECHNIQUE: view(s) of the humerus. COMPARISON: None. FINDINGS: Normal visualized humerus. There is no demonstrated fracture or osseous destructive process. There is no demonstrated soft tissue abnormality. RAD/Humerus min 2 Views IMPRESSION: Normal x-ray examination of the humerus. Electronically Signed: Ernesto Doss, at 12:23 EST Tel , Service support ,
--- NOTE | 2019-09-03 11:43 | RAD_ITS ---
STUDY: X-RAY - RIGHT ELBOW REASON FOR EXAM: Female, 28 years old. TECHNIQUE: 3 view(s) of the elbow. COMPARISON: None. FINDINGS: There is chip fracture involving the radial head that is reaching the articular surface. Joint effusion is noted. No other osseous or articular abnormality noted. RAD/Elbow min 3 Views IMPRESSION: Chip fracture of the radial head. Electronically Signed: Ernesto Doss, at 12:21 EST Tel , Service support ,
--- NOTE | 2019-09-03 11:47 | RAD_ITS ---
STUDY: X-RAY - RIGHT RADIUS AND ULNA REASON FOR EXAM: Female, 28 years old. TECHNIQUE: view(s) of the forearm. COMPARISON: None. FINDINGS: There is chip fracture of the radial head that is reaching the articular surface with slight depression . There is joint effusion. The rest of the examination is negative RAD/Forearm 2 Views IMPRESSION: Fracture of the radial head that is reaching the articular surface with minimal depression as described Electronically Signed: Ernesto Doss, at 12:12 EST Tel , Service support ,
== END ==
PROVIDERS: Referring Provider Family Medicine; Visit Provider Family Medicine
DX: M79.601 Pain in right arm (principal)
CPT/HCPCS: 73060; 73080; 73090

== ENCOUNTER → 2019-09-09 12:15 | Outpatient (CLI) | payer SELFPAY ==
--- NOTE | 2019-09-09 12:21 | CT_ITS ---
STUDY: CT RIGHT ELBOW WITHOUT CONTRAST REASON FOR EXAM: Female, 28 years old. Pain status post fall. RADIATION DOSAGE (If Supplied By Facility): CTDIvol = ( 24.58 ) mGy, DLP = ( 493 ) mGycm TECHNIQUE: Transaxial CT imaging of the elbow was performed. Sagittal and coronal images were reconstructed. Individualized dose optimization techniques were used for this CT. COMPARISON: X-ray 09/03/2019. FINDINGS: Patient is casted, which reduces mobility and limited positioning. Moderate elbow joint effusion consistent with fracture. There is a nondisplaced intra-articular fracture of the radial head. No angulation. Visualized humerus and ulna are intact. Mild subcutaneous edema dorsally. The soft tissue structures are unremarkable. CT/Extremity Upper without Contra IMPRESSION: 1. Nondisplaced intra-articular fracture of the radial head. 2. Joint effusion. Electronically Signed: Meghan Landon MD at 21:13 EST Tel , Service support ,
== END ==
PROVIDERS: Referring Provider Physician Assistant; Visit Provider Physician Assistant
DX: M25.521 Pain in right elbow (principal)
CPT/HCPCS: 73200